=== PATIENT | female | born 1955 | race Caucasian/White ===

== ENCOUNTER 2016-08-25 09:42 | Day surgery (SDC) | payer OTHER ==
--- NOTE | 2016-08-22 14:23 | HISTORY AND PHYSICAL E ---
History and Physical NAME: NIHARIKA CHOE : 1955 AGE: 61Y ADMITTED: 08/25/2016 ROOM: HISTORY: Patient referred to us regarding colon exam. The patient presented at this time regarding colon exam. Rectal bleeding. A 61-year-old female. PAST MEDICAL HISTORY: Hyperlipidemia. Anxiety disorder. History of asthma. REFERRING: [facility]. SOCIAL HISTORY: . She does not drink. She does not smoke. ALLERGIES: No history of allergies. PAST SURGICAL HISTORY: Sinus surgery. Glaucoma. REVIEW OF SYSTEMS: CARDIAC: High cholesterol, on diet. RESPIRATORY: Asthma. Dyspnea. Wheezing. HEAD, EYES, EARS, NOSE AND THROAT: Eyeglasses. Glaucoma. ENDOCRINE: Negative. GASTROINTESTINAL: Rectal bleeding. Abdominal pain. NEUROPSYCHIATRIC: Anxiety disorder. FAMILY HISTORY: Father had emphysema. Mom had kidney disease, kidney failure. PHYSICAL EXAMINATION: GENERAL: Pleasant, alert, oriented. VITAL SIGNS: Blood pressure 130/80. Pulse 80. Respirations 18. Temp is 98. HEAD, EYES, EARS, NOSE AND THROAT: Normal. NECK: Supple. CARDIOVASCULAR: Normal. LUNGS: Clear. ABDOMEN: Soft. NEUROLOGIC: Negative. CONCLUSION: Rectal bleeding. PLAN: Colonoscopy. Colon exam. MEDICATIONS: Flovent. Clonazepam. Glucosamine. CoQ10. Vitamin C. DICTATING PHYSICIAN: JODI TRUJILLO M.D. [id number] [id number] Y#: [id number] ID: [id number] JOB#: [id number] ACCT: [id number] cc:JODI TRUJILLO M.D. >
[2016-08-25] MEDS ORDERED: PROMETHAZINE HCL INJ 25 MG/1 ML VIAL ONE (10:30)
[2016-08-25] MEDS ORDERED: ONDANSETRON HCL INJ/PF 4 MG/2 ML SDV ONE (10:30)
[2016-08-25] MEDS ORDERED: LIDOCAINE 2% JELLY 30 ML TUBE ONE (10:30)
[2016-08-25] MEDS: MIDAZOLAM 2 MG/2 ML INJ ONE ×2 (10:30→10:35)
[2016-08-25] MEDS ORDERED: GLYCOPYRROLATE INJ 0.4 MG/2 ML VIAL ONE (10:30)
[2016-08-25] MEDS ORDERED: NALOXONE HCL INJ/PF 0.4 MG/1 ML SDV ONE (10:30)
[2016-08-25] MEDS ORDERED: GLUCAGON,HUMAN RECOMB 1 MG INJ ONE (10:31)
[2016-08-25] MEDS ORDERED: EPINEPHRINE INJ 1 MG/10 ML DISP.SYRIN ONE (10:31)
[2016-08-25] MEDS ORDERED: FLUMAZENIL INJ 0.5 MG/5 ML VIAL IV ONE (10:31)
[2016-08-25] MEDS: FENTANYL CITRATE INJ/PF 100 MCG/2 ML AMPUL ONE ×2 (10:37→10:45)
[2016-08-25 11:57] VITALS: BP 114/58
--- NOTE | 2016-08-25 12:04 | OPERATIVE REPORT E ---
Operative Report NAME: NIHARIKA CHOE : 1955 AGE: 61Y DATE OF SURGERY: 08/25/2016 ROOM: PREOPERATIVE DIAGNOSIS: Colon screening. POSTOPERATIVE DIAGNOSIS: Redundant colon. No evidence of polyps. No evidence of malignancy. PROCEDURE: Colonoscopy. SURGEON: JODI TRUJILLO M.D. TISSUE REMOVED OR ALTERED: None. FINDINGS: No polyps. Very sharp in the sigmoid descending colon, difficult intubation. DESCRIPTION: Rectal exam normal. Sigmoid descending colon redundant, normal. Transverse colon normal. Ascending cecum normal. Scope withdrawn from cecum, ascending, transverse, descending sigmoid all the way to the rectum. Because of difficulty doing the colon, I am going to obtain acute abdominal series to make sure we do not have any perforation. Patient has very high splenic and difficult intubation of her sigmoid descending colon. Again, I am going to obtain acute abdomen, baseline CBC, keep the patient on clear to full liquid. Awaiting lab results. PLAN: Recommend patient needs colonoscopy followup 10 years. DICTATING PHYSICIAN: JODI TRUJILLO M.D. [id number] [id number] PHY#: [id number] ID: [id number] JOB#: [id number] ACCT: [id number] cc:JODI TRUJILLO M.D. >
[2016-08-25 12:15] LABS: ABSOLUTE EOSINOPHILS # (AUTO) 0.6 10^3/uL (0.0-0.6); ABSOLUTE LYMPHOCYTES (AUTO) 1.6 10^3/uL (0.5-4.7); ABSOLUTE MONOCYTES (AUTO) 0.5 10^3/uL (0.1-1.4); ABSOLUTE NEUT (AUTO) 7.3 10^3/uL (1.7-8.2); BASOPHILS % (AUTO) 0.2 % (0-2); EOSINOPHILS % (AUTO) 5.9 % (0-6); HEMOGLOBIN 13.7 g/dL (12.0-15.5); HGB HCT DIFFERENCE 1.1; LYMPHOCYTES % (AUTO) 15.6 % (13-45); MEAN CORPUSCULAR HEMOGLOBIN 30.8 pg (27.0-33.4); MEAN CORPUSCULAR HGB CONC 34.2 g/dL (32.0-36.0); MEAN CORPUSCULAR VOLUME 90 fl (80-97); MONOCYTES % (AUTO) 4.8 % (3-13); RED BLOOD COUNT 4.44 10^6/uL (3.72-5.28); RED CELL DISTRIBUTION WIDTH 12.9 % (11.5-14.0); SEGMENTED NEUTROPHILS % (AUTO) 73.5 % (42-78)
--- NOTE | 2016-08-25 14:23 | DISCHARGE SUMMARY E ---
Discharge Summary NAME: INHARIKA CHOE : 1955 AGE: 61Y ADMITTED: 08/25/2016 DISCHARGED: 08/25/2016 HOSPITAL COURSE: The patient is a 61-year-old female presented for screening colonoscopy. Her colon exam was completed to the cecum, but her colon as difficult to intubate in the sigmoid descending. She has high splenic curve. At the end of the colonoscopy, I felt I may need to do acute abdomen, but we waited for an hour and I re-evaluated the patient. Her abdomen was very soft and she has no pain and I felt it is appropriate to cancel the x-ray for now, but we will proceed with CBC. The patient was given instruction to come to the ER if she has abdominal pain. Meanwhile, we will hold aspirin, nonsteroidal, keep her on full liquids for today and awaiting CBC. We will follow her as an outpatient. CONCLUSIONS: Colon screen showed no polyps, no malignancy. Difficult colonoscopy. Consider followup colonoscopy 10+ years. Awaiting baseline CBC. Full liquids, hold aspirin, nonsteroidals. FINAL DIAGNOSIS: Colon screening shows no polyps, redundant colon. DICTATING PHYSICIAN: JODI TRUJILLO M.D. [id number] [id number] PHY#: [id number] ID: [id number] JOB#: [id number] ACCT: [id number] cc:JODI TRUJILLO M.D. , [facility]
== END 2016-08-25 12:05 | disposition home or self-care (01) ==
LOC: END 09:42
PROVIDERS: ATTEND Specialist
PROC: 0DJD8ZZ Inspection of Lower Intestinal Tract, Via Natural or Artificial Opening Endoscopic (ICD-10-PCS; principal; 2016-08-25 10:00)
DX: Z12.11 Encounter for screening for malignant neoplasm of colon (principal); K62.5 Hemorrhage of anus and rectum; Q43.8 Other specified congenital malformations of intestine; E78.5 Hyperlipidemia, unspecified; E78.00 Pure hypercholesterolemia, unspecified; J45.909 Unspecified asthma, uncomplicated
CPT/HCPCS: 45378; 36415; 85025; J2250; J0171; J3010; J2405; J1610; J2310; J2550; J3490